=== PATIENT | female | born 1940 | race Caucasian/White ===

== ENCOUNTER 2017-08-07 13:05 | Emergency (ER) | payer OTHER ==
[~2017-08-07] VITALS: Ht 147.3 cm; Wt 42.0 kg
[2017-08-07 13:11] VITALS: TEMP 36.5; Ht 147.3 cm; Wt 42.0 kg
--- NOTE | 2017-08-07 13:20 | EMERGENCY ROOM VISIT NOTE ---
History Report prepared by Deja: Manuelito Ferreira Under the Supervision of: Dr. Jaden Mcgregor M.D. First contact with patient: 13:16 Chief Complaint: REFERRED BY DOCTOR Stated Complaint: REFERRED BY History of Present Illness The patient is a 77 year old female with a history of gout who presents to the Emergency Room with worsening weeping and redness to the bilateral lower extremities over the past couple days. Per the patient's niece, the patient has arterial insufficiency, but her lower legs have gotten really bad over the past few days. Her lower legs are always noted to be swollen, but the redness and weeping is new. The patient also has new sores to the bilateral lower extremities. The patient states that her lower legs burn and get cold intermittently. She went to her primary care office earlier today, and was referred here because of the legs as well as a low H&H. The patient was hospitalized here in the past year for similar lower leg problems (albeit not as bad as right now), and it was initially thought to be cellulitis, but she was diagnosed instead with gout. The patient states that she takes a baby Aspirin daily but no other blood thinners. Source of History: patient, family Onset: Over past couple days Position: leg (bilateral lower) Symptom Intensity: never had this much redness to legs Quality: other (weeping) Timing: worsening Note: Associated symptoms: Lower legs burn and get cold intermittently. Low H&H. Review of Systems See HPI for pertinent positives and negatives. A total of ten systems were reviewed and were otherwise negative. Past Medical & Surgical Medical Problems: (1) Arterial insufficiency (2) Rheumatoid arthritis Family History Family history omitted secondary to patient's advanced age. Social History Smoking Status: Never Smoker Smokeless Tobacco Use: No Drug Use: none Occupation Status: retired Current/Historical Medications Scheduled Acetaminophen (Tylenol), 2 TAB PO Q6 Allopurinol (Zyloprim), 1 TAB PO DAILY Cephalexin Monohydrate (Keflex), 500 MG PO QID Cyanocobalamin (Vitamin B-12), 500 MCG PO DAILY Ferrous Sulfate (Kp Ferrous Sulfate), 1 TAB PO DAILY Furosemide (Lasix), 1 TAB PO DAILY Meclizine HCl (Meclizine HCl), 1 TAB PO TID Multivitamin (Multivitamin), 1 TAB PO DAILY Potassium Ext Rel (Klor-Con), 20 MEQ PO DAILY Triamcinolone Acetonide (Topic (Triamcinolone Acet 0.025%), 1 APPLN TOP BID Scheduled PRN Cyclobenzaprine Hcl (Flexeril), 1 TAB PO HS PRN for Headache Miscellaneous Medications Calcium Carbonate (Tums) Cranberry (Vaccinium Macrocarp (Cranberry) Fish Oil ([place]-3), 1 CAP PO Vitamin E (Topical) (Vitamin E) Allergies Coded Allergies: Carvedilol (Unverified Allergy, Unknown, unknown, 08/07/17) Physical Exam Vital Signs Date Time Temp Pulse Resp B/P (MAP) Pulse Ox O2 Delivery O2 Flow Rate FiO2 08/07/17 17:45 110 18 192/90 97 Room Air 08/07/17 15:46 91 18 194/69 93 Room Air 08/07/17 14:00 95 Room Air 08/07/17 13:29 92 08/07/17 13:11 36.5 88 16 174/70 99 Room Air Physical Exam GENERAL: Awake, alert, pleasantly confused, in no distress HENT: Normocephalic, atraumatic. Dry mucous membranes. EYES: Normal conjunctiva. Sclera non-icteric. NECK: Supple. No nuchal rigidity. FROM. No JVD. RESPIRATORY: Clear to auscultation. CARDIAC: Regular rate, normal rhythm. Extremities warm and well perfused. Pulses equal. ABDOMEN: Soft, non-distended. No tenderness to palpation. No rebound or guarding. No masses. RECTAL: Deferred. MUSCULOSKELETAL: Chest examination reveals no tenderness. The back is symmetrical on inspection without obvious abnormality. There is no CVA tenderness to palpation. No joint edema. LOWER EXTREMITIES: 2+ lower extremity edema. Mild erythema and warmth, no crepitus. NEURO: Normal sensorium. No sensory or motor deficits noted. SKIN: No rash or jaundice noted. Medical Decision & Procedures ER Provider Diagnostic Interpretation: Radiology results as stated below per my review and radiologist interpretation: BILATERAL LOWER EXTREMITY VENOUS DOPPLER HISTORY: Acute pain and swelling of the bilateral lower extremities BLE swelling COMPARISON STUDY: None. FINDINGS: There is normal compressibility, flow, and augmentation within the bilateral lower extremity deep venous systems. Moderate subcutaneous edema about the right lower extremity. IMPRESSION: No sonographic evidence of deep venous thrombosis within the right or left lower extremity. Electronically signed by: Ned Lou M.D. 08/07/2017 3:38 PM Dictated Date/Time: 08/07/2017 3:37 PM ART DOP LOWER EXT BILAT CLINICAL HISTORY: 77 years-old Female presenting with Non dopplerable pedal pulses, edema, pain, cold feet. TECHNIQUE: Real-time grayscale and color and spectral Doppler ultrasound imaging of the bilateral lower extremities arteries was performed. Measurements calculated based on NASCET criteria. COMPARISON: None. FINDINGS: Right: Common femoral artery: Patent. Peak systolic velocity 172 cm/s. Superficial femoral artery: Focal atherosclerosis with narrowing in the proximal SFA. Peak systolic velocity 214 cm/s at the site of stenosis and 13-48 cm/s distally. Blunted monophasic waveforms noted distally. Deep femoral artery: Atherosclerotic plaque results in narrowing of the origin. Peak systolic velocity 222 cm/s. Popliteal artery: Absence of color and spectral Doppler flow in the proximal to mid popliteal artery. Reconstitution of flow distally with blunted monophasic waveforms and a peak systolic velocity 36 cm/s. Anterior tibial artery: Blunted waveforms. Peak systolic velocity 29 cm/s. Posterior tibial artery: Nonphasic flow. Peak systolic velocity 8-11 cm/s. Peroneal artery: Questionable flow. Dorsalis pedis: Absence of flow. Left: Common femoral artery: Patent. Peak systolic velocity 130 cm/s. Superficial femoral artery: Atherosclerosis with focal narrowing in the proximal SFA. Peak systolic velocity 385 cm/s at the site of focal narrowing in the proximal portion and peak systolic velocity 27-50 cm/s in the midportion. The distal SFA demonstrates a lack of color and spectral Doppler flow. Deep femoral artery: Atherosclerosis. Peak systolic velocity 138 cm/s. Popliteal artery: Lack of color and spectral Doppler flow. Peak systolic velocity 0 cm/s. Anterior tibial artery: Monophasic flow. Peak systolic velocity 31 cm/s. Posterior tibial artery: Nonphasic flow. Peak systolic velocity 13 cm/s. Peroneal artery: Nonphasic flow. Peak systolic velocity 19-31 cm/s. Dorsalis pedis: Blunted waveforms. Peak systolic velocity 38 cm/s. QUIN Not performed. Reference ranges: Normal QUIN 1.0-1.4; 0.9-0.99 borderline; less than 0.9 abnormal. IMPRESSION: 1. Occlusion of the right distal SFA through the proximal to mid right popliteal artery. Hemodynamically significant stenosis in the proximal right SFA. Reconstitution of flow in the distal popliteal artery with blunted flow within the anterior and posterior tibial arteries. Absence of flow in the right dorsalis pedis artery and possibly the right peroneal artery. 2. Occlusion of the mid to distal left SFA and entire left popliteal artery. Hemodynamically significant stenosis in the proximal left SFA. Blunted flow noted in the left lower extremity arteries, presumably reconstituted by collateral vessels. Electronically signed by: Viral Pereira M.D. 08/07/2017 3:52 PM Dictated Date/Time: 08/07/2017 3:43 PM CHEST ONE VIEW PORTABLE CLINICAL HISTORY: CHEST PAIN dyspnea COMPARISON STUDY: No previous studies for comparison. FINDINGS: The bones soft tissues and hemidiaphragms are normal. The cardiomediastinal silhouette is normal. The lungs are clear. The pulmonary vasculature is normal. IMPRESSION: Negative chest. The above report was generated using voice recognition software. It may contain grammatical, syntax or spelling errors. Electronically signed by: Porfirio Carson M.D. 08/07/2017 2:22 PM Dictated Date/Time: 08/07/2017 2:22 PM Laboratory Results 08/07/17 14:10 Red Blood Count 2.43, Mean Corpuscular Volume 101.2, Mean Corpuscular Hemoglobin 33.7, Mean Corpuscular Hemoglobin Concent 33.3, Mean Platelet Volume 8.9, Neutrophils (%) (Auto) 74.4, Lymphocytes (%) (Auto) 14.4, Monocytes (%) ( Auto) 10.1, Eosinophils (%) (Auto) 0.5, Basophils (%) (Auto) 0.3, Neutrophils # (Auto) 5.55, Lymphocytes # (Auto) 1.07, Monocytes # (Auto) 0.75, Eosinophils # ( Auto) 0.04, Basophils # (Auto) 0.02 08/07/17 14:10 Test 08/07/17 14:10 08/07/17 16:25 White Blood Count 7.45 K/uL (4.8-10.8) Red Blood Count 2.43 M/uL (4.2-5.4) Hemoglobin 8.2 g/dL (12.0-16.0) Hematocrit 24.6 % (37-47) Mean Corpuscular Volume 101.2 fL (80-100) Mean Corpuscular Hemoglobin 33.7 pg (25-34) Mean Corpuscular Hemoglobin Concent 33.3 g/dl (32-36) Platelet Count 318 K/uL (130-400) Mean Platelet Volume 8.9 fL (7.4-10.4) Neutrophils (%) (Auto) 74.4 % Lymphocytes (%) (Auto) 14.4 % Monocytes (%) (Auto) 10.1 % Eosinophils (%) (Auto) 0.5 % Basophils (%) (Auto) 0.3 % Neutrophils # (Auto) 5.55 K/uL (1.4-6.5) Lymphocytes # (Auto) 1.07 K/uL (1.2-3.4) Monocytes # (Auto) 0.75 K/uL (0.11-0.59) Eosinophils # (Auto) 0.04 K/uL (0-0.5) Basophils # (Auto) 0.02 K/uL (0-0.2) RDW Standard Deviation 72.8 fL (36.4-46.3) RDW Coefficient of Variation 19.7 % (11.5-14.5) Immature Granulocyte % (Auto) 0.3 % Immature Granulocyte # (Auto) 0.02 K/uL (0.00-0.02) Tear Drop Cells 1+ Prothrombin Time 10.0 SECONDS (9.0-12.0) Prothromb Time International Ratio 1.0 (0.9-1.1) Anion Gap 7.0 mmol/L (3-11) Est Creatinine Clear Calc Drug Dose 29.6 ml/min Estimated GFR () 61.7 Estimated GFR (Non- 53.3 BUN/Creatinine Ratio 37.2 (10-20) Calcium Level 9.0 mg/dl (8.5-10.1) Magnesium Level 2.0 mg/dl (1.8-2.4) Total Bilirubin 0.6 mg/dl (0.2-1) Direct Bilirubin 0.2 mg/dl (0-0.2) Aspartate Amino Transf (AST/SGOT) 19 U/L (15-37) Alanine Aminotransferase (ALT/SGPT) 36 U/L (12-78) Alkaline Phosphatase 187 U/L (45-117) Troponin I 0.021 ng/ml (0-0.045) Pro-B-Type Natriuretic Peptide 26053 pg/ml (0-1800) Total Protein 8.0 gm/dl (6.4-8.2) Albumin 3.8 gm/dl (3.4-5.0) Lipase 515 U/L (73-393) Urine Color YELLOW Urine Appearance CLEAR (CLEAR) Urine pH 5.5 (4.5-7.5) Urine Specific [place] 1.015 (1.000-1.030) Urine Protein 2+ (NEG) Urine Glucose (UA) NEG (NEG) Urine Ketones NEG (NEG) Urine Occult Blood NEG (NEG) Urine Nitrite NEG (NEG) Urine Bilirubin NEG (NEG) Urine Urobilinogen NEG (NEG) Urine Leukocyte Esterase NEG (NEG) Urine RBC 0-4 /hpf (0-4) Urine WBC 0 /hpf (0-5) Urine Epithelial Cells 5-10 /lpf (0-5) Urine Bacteria NEG (NEG) Laboratory results reviewed by me Medications Administered Medications (Trade) Dose Ordered Sig/Amada Route Start Time Stop Time Status Last Admin Dose Admin Cephalexin Monohydrate (Keflex Cap) 500 mg NOW STAT PO 08/07/17 17:46 08/07/17 17:48 DC 08/07/17 17:51 500 MG Cephalexin Monohydrate (Keflex 500MG Home Pack) 1 homepack NOW STAT PO 08/07/17 17:46 08/07/17 17:48 DC 08/07/17 17:51 1 HOMEPACK ECG Per My Interpretation Indication: other (cellulitis) Rate (beats per minute): 84 Rhythm: sinus rhythm Findings: no acute ischemic change, other (normal axis) ED Course 1328: The patient was evaluated in room B2. A complete history and physical exam was performed. 1608: I reevaluated the patient and updated her. 1618: I discussed the patient with Dr. Centeno - [facility] vascular surgery. 1739: I reevaluated the patient and she is resting. Discussed results and discharge instructions: she verbalized understanding and agreement. The patient is ready for discharge. Medical Decision I reviewed the patient's past medical history, medications, and the nursing notes as described above. Differential diagnosis: Etiologies such as cellulitis, abscess, MRSA infection, DVT, necrotizing fasciitis, dermatitis, drug eruption, as well as others were entertained.. The patient is a 77-year-old woman with a past medical history of known PAD with known occlusive arterial disease in the lower extremities determined not to be a surgical or anticoagulation candidate in March at outside hospital who presents emergency department with newly worsening lower extremity swelling and redness per hpi. On arrival the patient is no acute distress, afebrile stable vital signs. Her main complaint is actually her right hip which he wants a steroid injection for. Niece at the bedside providing additional history. On exam the patient has no dopplerable pedal pulses. She does have delayed cap refill of approximately 5 seconds color does return. Motor sensory intact. No crepitus. Labs demonstrate a BNP that is elevated which apparently is not new per niece. Otherwise the patient's chest x-ray does not demonstrate any signs of failure. WBC within normal limits. Hemoglobin 8.2.. Duplex demonstrates known arterial occlusive disease however unclear how much this has evolved since March. Given the patient's prior history of unidentified anemia requiring blood transfusions and the fact that she was determined to not be a candidate for anticoagulation will defer this at this time. Case was discussed with Dr. Centeno, and I reviewed the duplex results with him. Recommends that further evaluation is appropriate outpatient with CTA and follow -up appointment. However, given the patient's worsening symptoms I did suggest to the patient that we admit her for further workup but she was adamant that she did not want to be admitted and expressed full medical decision-making capacity. While the patient's swelling and redness does appear most consistent with her arterial disease, will attempt a course of Keflex to see if this improves. Otherwise, the patient is adamant that she does not want to "follow up with any surgeon". She wants to see her primary care doctor who she trusts. Findings and plan for follow-up reviewed with patient. Patient agreeable and d/c 'd per discharge instructions. Medication Reconcilliation Current Medication List: was personally reviewed by me Blood Pressure Screening Patient's blood pressure: Elevated blood pressure Blood pressure disposition: Elevated BP felt to be situational Consults Time Called: 1614 Consulting Physician: [facility] vascular surgery Returned Call: 1618 I discussed the patient with Dr. Centeno [facility] vascular surgery. Impression Primary Impression: Arterial occlusive disease Additional Impression: Cellulitis Scribe Attestation The scribe's documentation has been prepared under my direction and personally reviewed by me in its entirety. I confirm that the note above accurately reflects all work, treatment, procedures, and medical decision making performed by me. Departure Information Dispostion Home / Self-Care Prescriptions Cephalexin Monohydrate (KEFLEX) 500 Mg Cap 500 MG PO QID for 7 Days, #28 CAP Prov: Jaden Mcgregor M.D. 08/07/17 Referrals J Carlos Centeno M.D. Patient Instructions Disease Peripheral Vascular Dc, ED Infec Skin Cellulitis, My [facility] Additional Instructions Please follow up with your primary care physician in the next 1-3 days for re- evaluation and follow-up with Dr. Centeno, vascular surgery, for reevaluation of your arterial occlusive disease, which will require a CT scan with contrast for further arterial evaluation. You were again found to have arterial occlusive disease. You may also have a superimposed cellulitis (skin infection). You were encouraged to stay for admission for further evaluation however you prefer to go home. Keflex as directed. Apply [place] bandages for compression and raise your legs whenever possible to minimize swelling. Continue your current medications as prescribed. Return to the emergency department for worsening symptoms as described in the accompanying instructions. Problem Qualifiers
[2017-08-07 14:00] VITALS: O2SAT 95
--- NOTE | 2017-08-07 14:23 | DIAGNOSTIC IMAGING REPORT ---
CHEST ONE VIEW PORTABLE CLINICAL HISTORY: CHEST PAIN dyspnea COMPARISON STUDY: No previous studies for comparison. FINDINGS: The bones soft tissues and hemidiaphragms are normal. The cardiomediastinal silhouette is normal. The lungs are clear. The pulmonary vasculature is normal. IMPRESSION: Negative chest. The above report was generated using voice recognition software. It may contain grammatical, syntax or spelling errors. Electronically signed by: Porfirio Carson M.D. 08/07/2017 2:22 PM Dictated Date/Time: 08/07/2017 2:22 PM
[2017-08-07 14:28] LABS: BASO % 0.3 %; BASO ABS # 0.02 K/uL (0-0.2); EOS % 0.5 %; EOS ABS # 0.04 K/uL (0-0.5); HEMATOCRIT 24.6 % (37-47); HEMOGLOBIN 8.2 g/dL (12.0-16.0); IG# 0.02 K/uL (0.00-0.02); LYMPH % 14.4 %; LYMPH ABS # 1.07 K/uL (1.2-3.4); MEAN CELL VOLUME 101.2 fL (80-100); MEAN CORPUSCULAR HEMOGLOBIN 33.7 pg (25-34); MEAN CORPUSCULAR HGB CONC 33.3 g/dl (32-36); MEAN PLATELET VOLUME 8.9 fL (7.4-10.4); MONO % 10.1 %; MONO ABS # 0.75 K/uL (0.11-0.59); NEUT % 74.4 %; NEUT ABS # 5.55 K/uL (1.4-6.5); PLATELET COUNT 318 K/uL (130-400); RED CELL DISTRIBUTION WIDTH CV 19.7 % (11.5-14.5); RED CELL DISTRIBUTION WIDTH SD 72.8 fL (36.4-46.3); WHITE BLOOD COUNT 7.45 K/uL (4.8-10.8)
[2017-08-07 14:50] LABS: ALBUMIN 3.8 gm/dl (3.4-5.0); CREATININE 1.01 mg/dl (0.60-1.20); POTASSIUM 4.8 mmol/L (3.5-5.1)
[2017-08-07] MEDS ORDERED: CYCL5TAB PO (14:51)
[2017-08-07] MEDS ORDERED: VITA1CRE (14:51)
[2017-08-07] MEDS ORDERED: POTA-639 PO (14:51)
[2017-08-07] MEDS ORDERED: MULT-506 PO (14:51)
[2017-08-07] MEDS ORDERED: FURO-85 PO (14:51)
[2017-08-07] MEDS ORDERED: ALLO100T PO (14:51)
[2017-08-07] MEDS ORDERED: FERR1TAB13 PO (14:51)
[2017-08-07] MEDS ORDERED: CRAN400C (14:51)
[2017-08-07] MEDS ORDERED: CYAN500T PO (14:51)
[2017-08-07] MEDS ORDERED: OMEG10007 PO (14:51)
[2017-08-07] MEDS ORDERED: MECL1TAB40 PO (14:51)
[2017-08-07] MEDS ORDERED: CALC500C3 (14:51)
[2017-08-07] MEDS ORDERED: TRMO2580 TOP (14:51)
[2017-08-07] MEDS ORDERED: ACET-1256 PO (14:51)
--- NOTE | 2017-08-07 15:39 | DIAGNOSTIC IMAGING REPORT ---
BILATERAL LOWER EXTREMITY VENOUS DOPPLER HISTORY: Acute pain and swelling of the bilateral lower extremities BLE swelling COMPARISON STUDY: None. FINDINGS: There is normal compressibility, flow, and augmentation within the bilateral lower extremity deep venous systems. Moderate subcutaneous edema about the right lower extremity. IMPRESSION: No sonographic evidence of deep venous thrombosis within the right or left lower extremity. Electronically signed by: Ned Lou M.D. 08/07/2017 3:38 PM Dictated Date/Time: 08/07/2017 3:37 PM
--- NOTE | 2017-08-07 15:53 | DIAGNOSTIC IMAGING REPORT ---
ART DOP LOWER EXT BILAT CLINICAL HISTORY: 77 years-old Female presenting with Non dopplerable pedal pulses, edema, pain, cold feet. TECHNIQUE: Real-time grayscale and color and spectral Doppler ultrasound imaging of the bilateral lower extremities arteries was performed. Measurements calculated based on NASCET criteria. COMPARISON: None. FINDINGS: Right: Common femoral artery: Patent. Peak systolic velocity 172 cm/s. Superficial femoral artery: Focal atherosclerosis with narrowing in the proximal SFA. Peak systolic velocity 214 cm/s at the site of stenosis and 13-48 cm/s distally. Blunted monophasic waveforms noted distally. Deep femoral artery: Atherosclerotic plaque results in narrowing of the origin. Peak systolic velocity 222 cm/s. Popliteal artery: Absence of color and spectral Doppler flow in the proximal to mid popliteal artery. Reconstitution of flow distally with blunted monophasic waveforms and a peak systolic velocity 36 cm/s. Anterior tibial artery: Blunted waveforms. Peak systolic velocity 29 cm/s. Posterior tibial artery: Nonphasic flow. Peak systolic velocity 8-11 cm/s. Peroneal artery: Questionable flow. Dorsalis pedis: Absence of flow. Left: Common femoral artery: Patent. Peak systolic velocity 130 cm/s. Superficial femoral artery: Atherosclerosis with focal narrowing in the proximal SFA. Peak systolic velocity 385 cm/s at the site of focal narrowing in the proximal portion and peak systolic velocity 27-50 cm/s in the midportion. The distal SFA demonstrates a lack of color and spectral Doppler flow. Deep femoral artery: Atherosclerosis. Peak systolic velocity 138 cm/s. Popliteal artery: Lack of color and spectral Doppler flow. Peak systolic velocity 0 cm/s. Anterior tibial artery: Monophasic flow. Peak systolic velocity 31 cm/s. Posterior tibial artery: Nonphasic flow. Peak systolic velocity 13 cm/s. Peroneal artery: Nonphasic flow. Peak systolic velocity 19-31 cm/s. Dorsalis pedis: Blunted waveforms. Peak systolic velocity 38 cm/s. QUIN Not performed. Reference ranges: Normal QUIN 1.0-1.4; 0.9-0.99 borderline; less than 0.9 abnormal. IMPRESSION: 1. Occlusion of the right distal SFA through the proximal to mid right popliteal artery. Hemodynamically significant stenosis in the proximal right SFA. Reconstitution of flow in the distal popliteal artery with blunted flow within the anterior and posterior tibial arteries. Absence of flow in the right dorsalis pedis artery and possibly the right peroneal artery. 2. Occlusion of the mid to distal left SFA and entire left popliteal artery. Hemodynamically significant stenosis in the proximal left SFA. Blunted flow noted in the left lower extremity arteries, presumably reconstituted by collateral vessels. Electronically signed by: Viral Pereira M.D. 08/07/2017 3:52 PM Dictated Date/Time: 08/07/2017 3:43 PM
[2017-08-07 17:45] VITALS: BP 192/90; PULSE 110; O2SAT 97
[2017-08-07] MEDS ORDERED: CEPHALEXIN MONOHYDRATE 250 MG CAP PO STA (17:46)
[2017-08-07] MEDS ORDERED: CEPHALEXIN 500MG HOME PACK 1 EA BTL PO STA (17:46)
[2017-08-07] MEDS ORDERED: CEPH500C2 PO (17:49)
== END 2017-08-07 18:02 | disposition home or self-care (01) ==
LOC: C.EDB 13:06
DX: I77.1 Stricture of artery (principal); L03.90 Cellulitis, unspecified